=== PATIENT | female | born 1990 ===

== ENCOUNTER 2016-10-02 15:29 | Emergency (ER) | payer MEDICAID, OTHER ==
[2016-10-02 15:36] VITALS: BP 122/74; PULSE 75; RESP 16; TEMP 98.3; O2SAT 98
--- NOTE | 2016-10-02 16:15 | C.PDOC ---
History Of Present Illness 26 y/o female presents to ED for suture removal. Pt had cyst removed from scalp 2 weeks ago. She was scheduled to have sutures removed by PMD however they are on vacation. Pt denies fever, chills, pain or any other complaints. Time Seen by Provider: 10/02/16 15:37 Chief Complaint (Nursing): Suture/Staple Removal History Per: Patient History/Exam Limitations: no limitations Onset/Duration Of Symptoms: Days Ago Current Symptoms Are (Timing): Better Severity: Mild Recent travel outside of the [place]: No Past Medical History Reviewed: Historical Data, Nursing Documentation, Vital Signs Vital Signs: Last Vital Signs Temp 98.3 F 10/02/16 15:33 Pulse 75 10/02/16 15:33 Resp 16 10/02/16 15:33 BP 122/74 10/02/16 15:33 Pulse Ox 98 10/02/16 16:17 Surgical History: (in 2013) Family History: States: Unknown Family Hx - Social History Hx Tobacco Use: No Hx Alcohol Use: No Hx Substance Use: No - Immunization History Hx Tetanus Toxoid Vaccination: No Hx Influenza Vaccination: No Hx Pneumococcal Vaccination: No Review Of Systems Constitutional: Negative for: Fever, Chills Skin: Positive for: Other (suture removal ) Physical Exam - Physical Exam Appears: Non-toxic, No Acute Distress Skin: Warm, Dry, Other (running suture to frontal scalp, clean, dry and intact) Head: Normacephalic, No Swelling Extremity: Bilateral: Atraumatic Neurological/Psych: Oriented x3, Normal Speech ED Course And Treatment O2 Sat by Pulse Oximetry: 98 (room air) Pulse Ox Interpretation: Normal Medical Decision Making Medical Decision Making: Removed sutures without difficulty Disposition - Disposition Disposition: HOME/ ROUTINE Disposition Time: 15:50 Condition: GOOD Additional Instructions: Your stitches were removed You may resume normal activity Instructions: Stitches Removal (ED) - POA Present On Arrival: None - Clinical Impression Clinical Impression: Removal of suture - PA / DIRECTOR BEHAVIORAL HEALTH / Resident Statement MD/DO has reviewed & agrees with the documentation as recorded. - Scribe Statement The provider has reviewed the documentation as recorded by the Louieibandres Rios All medical record entries made by the Louieibe were at my direction and personally dictated by me. I have reviewed the chart and agree that the record accurately reflects my personal performance of the history, physical exam, medical decision making, and the department course for this patient. I have also personally directed, reviewed, and agree with the discharge instructions and disposition.
== END 2016-10-02 15:54 | disposition home or self-care (01) ==
LOC: C.ER 15:29
DX: Z48.02 Encounter for removal of sutures (principal)

== ENCOUNTER 2018-03-16 08:17 | Day surgery (SDC) | payer MEDICAID ==
[2018-03-14 08:54] VITALS: BMI 34.7
--- NOTE | 2018-03-16 10:17 | CP.SDSHP ---
Same Day Surgery H & P - History Proposed Procedure: US guided FNA of right neck mass Pre-Op Diagnosis: right neck mass - Allergies Allergies: Allergies No Known Allergies Allergy (Verified 03/14/18 08:54) - Physical Exam Mental Status: Alert & Oriented x3 - {Optional Preform as Required} Other Pertinent Findings: Palpable right submandibular mass, painful. - Impression Impression: PT with complex right submandibular mass that is very painful. Plan US guided FNA. Pt. Evaluated Today:Candidate for Anesthesia & Procedure: No - Date & Time Date: 03/16/18 Time: 09:50 Short Stay Discharge - Short Stay Discharge Admitting Diagnosis/Reason for Visit: DX: NECK LAD Disposition: HOME/ ROUTINE
--- NOTE | 2018-03-16 10:20 | PCM.SURG1 ---
Surgeon's Initial Post Op Note - Surgeon's Notes Surgeon: Kishore Hunter MD Louver Mortiser Operator: NONE Type of Anesthesia: Local Pre-Operative Diagnosis: Right neck mass Operative Findings: US showed a complex right neck mass Post-Operative Diagnosis: Right neck mass Operation Performed: US guided FNA. Three passes made into mass with a 25 g needle. Additional samples could not be obtained secondary to Pt discomfort. Specimen/Specimens Removed: 25 g FNA x 3 Estimated Blood Loss: EBL {In ML}: 0 Blood Products Given: N/A Drains Used: No Drains Post-Op Condition: Fair Date of Surgery/Procedure: 03/16/18 Time of Surgery/Procedure: 10:15
--- NOTE | 2018-03-18 10:47 | US ---
PROCEDURE: Date of procedure: 03/16/2018/ Procedure: Ultrasound-guided FNA of right submandibular mass. Ultrasound guidance for biopsy, [id number] Medications: 5cc 1% Lidocaine HISTORY: Enlarged submandibular mass, painful to touch TECHNIQUE: Following informed consent and procedure time-out, limited ultrasound patient's right neck demonstrates enlarged submental mass measuring 2.2 centimeter in greatest dimension. The mass is heterogeneous in echotexture and does not have appearance of a lymph node. The patient's neck was prepped and draped in the usual sterile fashion. The skin was anesthetized with 1 percent lidocaine. Ultrasound-guided fine needle aspiration was then performed using a 25gauge needle. A total of 3 passes were made into the lymph node under direct ultrasound guidance. FNA specimens were obtained and sent for routine pathology. Additional specimens could not be obtained secondary to patient's discomfort. A post biopsy ultrasound showed no hematoma IMPRESSION: Ultrasound-guided FNA of enlarged right neck lymph mass.
== END 2018-03-16 10:55 | disposition home or self-care (01) ==
LOC: C.SPRAD 08:17
PROVIDERS: ATTEND Radiology Vascular & Interventional Radiology
DX: C08.9 Malignant neoplasm of major salivary gland, unspecified (principal)

== ENCOUNTER 2018-06-21 12:58 | Emergency (ER) | payer MEDICAID, OTHER ==
[2018-06-21 12:59] VITALS: BMI 34.7
--- NOTE | 2018-06-21 15:11 | C.PDOC ---
History Of Present Illness 27-year-old female presents to the ED complaining of crampy abdominal pain that began this morning. LMP was mid May and patient reports she is not sure if she was . Earlier today she went to the bathroom and noticed bleeding, along with a clump of tissue that came out. Patient expresses concern for miscarriage. Otherwise she denies any fever, nausea, vomiting, weakness, dizziness, or other complaints. Time Seen by Provider: 06/21/18 14:07 Chief Complaint (Nursing): Abdominal Pain History Per: Patient History/Exam Limitations: no limitations Onset/Duration Of Symptoms: Hrs Current Symptoms Are (Timing): Still Present Quality Of Discomfort: Cramping Abnormal Vaginal Bleeding: Yes : 3 Para: 1 Past Medical History Reviewed: Historical Data, Nursing Documentation, Vital Signs - Medical History PMH: Denies: Chronic Kidney Disease Surgical History: (in 2013) Family History: States: Unknown Family Hx - Social History Hx Tobacco Use: No Hx Alcohol Use: No Hx Substance Use: No - Immunization History Hx Tetanus Toxoid Vaccination: No Hx Influenza Vaccination: No Hx Pneumococcal Vaccination: No Review Of Systems Constitutional: Negative for: Fever, Chills Cardiovascular: Negative for: Chest Pain, Palpitations Respiratory: Negative for: Shortness of Breath Gastrointestinal: Positive for: Abdominal Pain (cramping). Negative for: Nausea, Vomiting Genitourinary: Positive for: Vaginal Bleeding (with "tissue") Musculoskeletal: Negative for: Back Pain Neurological: Negative for: Weakness, Numbness, Dizziness Physical Exam - Physical Exam Appears: Well, Non-toxic, No Acute Distress Skin: Warm, Dry, No Rash Head: Atraumatic, Normacephalic Eye(s): bilateral: Normal Inspection Oral Mucosa: Moist Neck: Normal ROM, Supple, Other (Surgical scar from thyroidectomy noted, well- healing) Chest: Symmetrical Cardiovascular: Rhythm Regular, No Murmur Respiratory: Normal Breath Sounds, No Rales, No Rhonchi, No Wheezing Gastrointestinal/Abdominal: Soft, Tenderness (Suprapubic tenderness), No Guarding, No Rebound Back: No CVA Tenderness, No Vertebral Tenderness Extremity: Bilateral: Atraumatic, Normal Color And Temperature, Normal ROM Neurological/Psych: Oriented x3, Normal Speech Medical Decision Making Medical Decision Making: Impression: Vaginal bleeding Plan: Patient assessed and examined. Orders placed in for urine preg POC. 15:25 Urine not yet taken, patient noted to have eloped from the ED. Patient left without treatment. Disposition - Disposition Disposition: ELOPEMENT - ER ONLY Disposition Time: 15:25 Condition: STABLE - POA Present On Arrival: None - Clinical Impression Clinical Impression: Vaginal bleeding, Eloped from emergency department - PA / [employer]GS[employer] OPENER / Resident Statement MD/DO has reviewed & agrees with the documentation as recorded. - Scribe Statement The provider has reviewed the documentation as recorded by the Scribe Chante Washington All medical record entries made by the Louieibandres were at my direction and personally dictated by me. I have reviewed the chart and agree that the record accurately reflects my personal performance of the history, physical exam, medical decision making, and the department course for this patient. I have also personally directed, reviewed, and agree with the discharge instructions and disposition.
== END 2018-06-21 14:55 | disposition left against medical advice (07) ==
LOC: C.ER 12:58
DX: N93.9 Abnormal uterine and vaginal bleeding, unspecified (principal)